=== PATIENT | female | born 1975 | race Caucasian/White ===

== ENCOUNTER 2019-03-21 08:08 | Inpatient (IN) | payer MEDICAID ==
[2019-03-13 11:32] VITALS: BMI 35.5
--- NOTE | 2019-03-19 09:20 | RADRPT ---
Vent Rate: 77 bpm RR Interval: 780 msec LA Interval: 147 msec QRS Duration: 89 msec QT Interval: 394 msec QTC Interval: 446 msec P-R-T [place]: 56 - 5 - 41 degrees Sinus rhythm...normal P axis, V-rate 50- 99 Electronically Signed By: Kd Molina
[2019-03-21] VITALS (24 sets, daily range): BP systolic 103–182; BP diastolic 53–98; PULSE 72–95; RESP 11–20; Ht 175.3 cm; Wt 109.0 kg
[~2019-03-21] VITALS: Ht 175.3 cm; Wt 109.0 kg
[~2019-03-21 08:08] MED LIST: ALBU8.5H8 INH; ATOR40TA68 PO; CEFA500C PO; CEFAZOLIN 2 GM/50 ML (PMX) 50 ML IVPB SCH; DEXTROSE 5%-0.45% NACL 1,000 ML IV ONE; GENTAMICIN 160 MG in DEXTROSE 5% 100 ML IVPB SCH; LISI10TA2 PO; METF-849 ORAL
--- NOTE | 2019-03-21 11:39 | PREAC ---
Date/Time of Note Date/Time of Note DATE: 03/21/19 TIME: 11:37 Anesthesia Eval and Record Evaluation Time Pre-Procedure Interview DATE: 03/21/19 TIME: 11:37 Age 43 Sex female NPO: 8 hrs Preoperative diagnosis left breast cancer Planned procedure left modified radical mastectomy and right prophylactic mastectomy using tissue die filer and acellular dermal matrix Past Medical History Past Medical History: Includes Cardio: HTN, Dyslipidemia Endo: Diabetes Pulm: Asthma (mild intermittent ) GI: Obesity Surgery & Anesthesia Issues No known issue Meds Anticoagulation: No Beta Matthew within 24 hr: No Reason Beta Matthew not given: Pt. not on B-Matthew Reported Medications Albuterol Sulfate* (Proair HFA*) 8.5 Gm Hfa.aer.ad, 2 PUFF INH Q4H PRN for WHEEZING AND SOB, #1 INHALER 03/21/19 Cefadroxil Hydrate* (Cefadroxil*) 500 Mg Capsule, 500 MG PO Q12, CAP 03/21/19 Atorvastatin* (Atorvastatin*) 40 Mg Tablet, 40 MG PO QHS, #30 TAB 03/21/19 Lisinopril* (Lisinopril*) 10 Mg Tablet, 10 MG PO DAILY, #30 TAB 03/21/19 Metformin* (Glucophage*) 500 Mg Tab, 2 TAB ORAL BID 03/21/19 Current Medications Dextrose/Sodium Chloride 1,000 ml @ 20 mls/hr Q24H ONCE IV ; Start 03/21/19 at 06:00; Stop 03/22/19 at 05:59 Cefazolin Sodium/ Dextrose 50 ml @ 100 mls/hr PREOP IVPB ; Start 03/21/19 at 06:00; Stop 03/21/19 at 16:00 Gentamicin Sulfate 160 mg/ Dextrose 104 ml @ 103.75 mls/ hr PREOP IVPB ; Start 03/21/19 at 06:00; Stop 03/21/19 at 19:00 Meds reviewed: Yes Allergies Coded Allergies: ibuprofen (Verified Allergy, Unknown, "UNABLE TP BREATHE", 03/20/19) Allergies Reviewed: Yes Labs/Studies Labs Reviewed: Reviewed by anesthesiologist test: Negative Studies: ECG, CXR Pre-procedure Exam Last vitals Vital Signs Date Temp Pulse Resp B/P (MAP) Pulse Ox O2 O2 Flow FiO2 Time Delivery Rate 03/21/19 97.8 82 16 182/95 98 08:30 (124) Airway: Adequate mouth opening, Adequate thyromental dist Mallampati: Mallampati II Teeth: Normal Lung: Normal Heart: Normal ASA Physical Status ASA physical status: 2 Emergency: None Planned Anesthetic General/MAC: ETT (vs. ), LMA Planned Pain Management Parenteral pain med, Local by surgeon Pre-operative Attestations Prior to commencing anesthesia and surgery, the patient was re-evaluated, there was verification of: *The patient's identity *The results of appropriate recent lab work and preoperative vital signs *The above evaluation not changing prior to induction *Anesthetic plan, risk benefits, alternative and complications discussed with patient/family; questions answered; patient/family understands, accepts and wishes to proceed. ANALI WILBURN MD Mar 21, 2019 11:39
[2019-03-21] MEDS ORDERED: MUPIROCIN 2% 15 GM CR ONE (12:27)
[2019-03-21] MEDS ORDERED: BUPIVACAINE 0.25% (MPF) 30 ML INJ ONE (12:27)
[2019-03-21] MEDS ORDERED: LIDOCAINE 1%/EPI 30 ML INJ ONE (12:27)
[2019-03-21] MEDS ORDERED: POLYMYXIN/BACITRACIN 1L IRRIG ONE (12:28)
[2019-03-21] MEDS ORDERED: GENTAMICIN 80 MG INJ ONE ×2 (12:28→15:16)
[2019-03-21] MEDS ORDERED: LIDOCAINE 2% (SDV) 5 ML INJ ONE ×2 (13:22→13:36)
[2019-03-21] MEDS ORDERED: MIDAZOLAM 1 MG/ML 2 ML INJ ONE (13:22)
[2019-03-21] MEDS ORDERED: PROPOFOL 20 ML ONE ×2 (13:36→13:39)
[2019-03-21] MEDS ORDERED: CEFAZOLIN 1 GM INJ ONE (13:36)
[2019-03-21] MEDS ORDERED: ONDANSETRON 4 MG INJ ONE (13:36)
[2019-03-21] MEDS ORDERED: DEXAMETHASONE 4 MG/ML 5 ML INJ ONE (13:36)
[2019-03-21] MEDS ORDERED: FAMOTIDINE 20 MG INJ ONE (13:44)
[2019-03-21] MEDS ORDERED: HYDROmorphONE 2 MG/ML SYG ONE (14:29)
--- NOTE | 2019-03-21 15:23 | SIPON ---
Date/Time of Note Date/Time of Note DATE: 03/21/19 TIME: 15:21 Operative Report Preoperative Diagnosis Invasive cancer left breast positive BRCA2 mutation need for left modified radical mastectomy and right mastectomy Postoperative Diagnosis Same Operation/Procedure Performed Left modified radical mastectomy and right mastectomy Surgeon see signature line senior administrative assistant Dr Thomas Anesthesia: general Estimated blood loss: 150 - 200 ml's Transfusion Required none Specimen Left breast and axillary contents and right breast Grafts/Implants none Complications none MEL CARREON MD Mar 21, 2019 15:23
[2019-03-21] MEDS ORDERED: FENTAnyl 50 MCG/ML VIAL IV PRN (15:30)
[2019-03-21] MEDS ORDERED: ACETAMINOPHEN 1000MG/100ML IV 100 ML IVPB ONE (15:30)
[2019-03-21] MEDS ORDERED: HYDROmorphONE 1 MG/5 ML IV SYRINGE IV PRN ×3 (15:30)
[2019-03-21] MEDS ORDERED: MEPERIDINE 25 MG INJ IV PRN (15:30)
[2019-03-21] MEDS ORDERED: DIPHENHYDRAMINE 50 MG INJ IV PRN (15:30)
[2019-03-21] MEDS ORDERED: ACETAMINOPHEN 1000MG/100ML IV 100 ML IVPB PRN (15:30)
[2019-03-21] MEDS ORDERED: ONDANSETRON 4 MG INJ IV PRN ×2 (15:30)
[2019-03-21] MEDS ORDERED: hydrALAzine 20 MG INJ IV PRN (15:30)
[2019-03-21] MEDS ORDERED: LABETALOL HCL 20MG INJ IV PRN (15:30)
[2019-03-21] MEDS ORDERED: LABETALOL HCL 20MG INJ ONE (16:18)
[2019-03-21] MEDS ORDERED: FENTAnyl 50 MCG/ML VIAL ONE (17:32)
--- NOTE | 2019-03-21 17:58 | PAC ---
Date/Time of Note Date/Time of Note DATE: 03/21/19 TIME: 17:58 Post-Anesthesia Notes Post-Anesthesia Note Last documented vital signs Vital Signs Date Temp Pulse Resp B/P (MAP) Pulse Ox O2 O2 Flow FiO2 Time Delivery Rate 03/21/19 98.0 17:56 03/21/19 82 16 182/95 98 08:30 (124) Activity: WNL Respiratory function: WNL Cardiovascular function: WNL Mental status: Baseline Pain reasonably controlled: Yes Hydration appropriate: Yes Nausea/Vomiting absent: Yes Comments BP: 110/58 HR: 71 RR: 15 T: 98 SaO2: 98% ANALI WILBURN MD Mar 21, 2019 17:58
--- NOTE | 2019-03-21 18:17 | OPPN ---
Date/Time of Note Date/Time of Note DATE: 03/21/19 TIME: 18:13 Operative Report Preoperative Diagnosis Immediately Post Bilateral Mastectomy Postoperative Diagnosis Same Operation/Procedure Performed Bilateral Immediate First Stage Breast Reconstruction using Subpectoral Tissue Line Up Examiner and Acellular Dermal Matrix Surgeon Ayesha Juárez M.D. quality assistant None Anesthesia: general (L.M.AVera, Mady Ken M.D., + 100 ml. of local anesthetic (0.125% Marcain, 0.5% Lidocain, and 1/200,000 Epinephrine Solution)) Estimated blood loss: 0 - 10 ml's Transfusion Required none Specimen None Grafts/Implants Bilateral A.D.M. Bilateral Tissue Expanders Complications none AYESHA JUÁREZ MD Mar 21, 2019 18:17
[2019-03-21] MEDS ORDERED: GLUCOSE GEL 15 GRAM TUBE PO PRN ×2 (18:30)
[2019-03-21] MEDS ORDERED: GLUCOSE GEL 15 GRAM TUBE BUCCAL PRN (18:30)
[2019-03-21] MEDS ORDERED: INSULIN ASPART [NOVOLOG] 3 ML PEN SC ONE (18:30)
[2019-03-21] MEDS ORDERED: GLUCAGON 1 MG INJ IM PRN (18:30)
[2019-03-21] MEDS ORDERED: DEXTROSE 50% 50 ML SYRINGE IV PRN ×2 (18:30)
[2019-03-21] MEDS ORDERED: CEFAZOLIN 1 GM/50 ML (PMX) 50 ML IVPB SCH ×2 (18:30→20:30)
[2019-03-21] MEDS: FENTAnyl 50 MCG/ML VIAL IV PRN ×2 (19:21→19:32)
[2019-03-21] MEDS: morphine 2 MG INJ IV PRN ×2 (20:10→21:07)
--- NOTE | 2019-03-21 20:19 | OPR ---
DATE OF OPERATION: 03/21/2019 PREOPERATIVE DIAGNOSIS: Invasive cancer, left breast, and positive BRCA2 mutation, need for left mod ified radical mastectomy and right mastectomy. INDICATIONS FOR PROCEDURE: The patient is a 43-year-old female who had previously been diagnosed wit h an invasive cancer of her left breast. Genetic testing revealed that she was BRCA positive. She w as counseled as to the need for both left modified radical mastectomy as well as a right mastectomy. She consented and was scheduled for surgery. DESCRIPTION OF PROCEDURE: The patient was brought to the operating theater and placed under general endotracheal tube anesthesia. The breast and axillary regions were prepped and draped in the usual s terile fashion bilaterally. Attention was first directed to the right side. An elliptical incision was made around the nipple-areolar complex including a small portion of the overlying breast skin. T he incision was then carried out with 15 blade scalpel. Subcutaneous tissue was dissected with caute ry. Skin edges were elevated with Allis [place] clamps, and skin flaps were created using cautery, fir st superiorly to the clavicle, then medially to the sternal border, inferiorly to the inframammary fo ld, and laterally until the latissimus dorsi muscle was identified throughout its course. Mastectomy then took place from medial to lateral. The border of the pectoralis major muscle and the pectorali s minor muscle were identified. Clavipectoral fascia was incised and the residual axillary tail of Mary da silva was then also resected with cautery. Specimen was removed, oriented and sent for permanent pat hologic analysis. The wound was irrigated. Minimal bleeding was controlled with cautery, and the wo und was then packed with warm saline-soaked lap pads. Attention was then directed to the left side. Again, elliptical incision was demarcated around the n ipple-areolar complex including a small portion of the overlying breast skin. The incision was jalen ed out with 15 blade scalpel, and the subcutaneous tissue was dissected with cautery. The skin edges were then elevated with Allis [place] clamps, and skin flaps were created using cautery, first superio rly to the clavicle, then medially to the sternal border, inferiorly to the inframammary fold, and la terally until the latissimus dorsi muscle was identified throughout its course. Mastectomy then took place from medial to lateral. The border of the pectoralis major muscle and the pectoralis minor mu scle was identified. The clavipectoral fascia was incised. A level 1, then partial level 2 axillary dissection was then performed using the LigaSure device. The final connective tissue attachments to the latissimus dorsi muscle were then transected with cautery. Specimen was removed, oriented, and sent for permanent pathologic analysis. The wound was irrigated. Minimal bleeding was controlled wi th cautery, and the wound was then packed with warm saline-soaked lap pads. At this time, Dr. Ramiro Juárez, plastic surgeon, came in and took over control of the operation to proceed with immediate sandra nstruction. He will dictate his portion of the operation separately. The total blood loss for Dr. Gary owen' portion of the operation was approximately 200 mL. There were no complications, and when Dr. Gary owen left the room, the patient was in stable condition. Dictated By: MEL CHERRY/TAM Conf#: [id number] DID#: [id number]
[2019-03-21] MEDS: D5W-0.45 NACL + KCL 20 MEQ 1,000 ML IV SCH ×2 (20:43→23:23)
[2019-03-21] MEDS ORDERED: ALBUTEROL HFA 8 GM INHALER INH PRN (21:00)
[2019-03-21] MEDS ORDERED: morphine 1 MG/ML 30 ML (PCA) IV SCH (22:30)
[2019-03-21] MEDS: morphine 1 MG/ML 30 ML (PCA) IV SCH (23:30)
[2019-03-21] MEDS: INSULIN ASPART [NOVOLOG] 3 ML PEN SC SCH (23:39)
[2019-03-22] VITALS (8 sets, daily range): BP systolic 119–164; BP diastolic 59–93; PULSE 66–89; RESP 16–20
[2019-03-22] MEDS: morphine 1 MG/ML 30 ML (PCA) IV SCH ×3 (05:31→20:08)
--- NOTE | 2019-03-22 06:17 | OPR ---
DATE OF OPERATION: 03/21/2019 PREOPERATIVE DIAGNOSIS: Immediately post bilateral mastectomy. POSTOPERATIVE DIAGNOSIS: Immediately post bilateral mastectomy. OPERATION PERFORMED: Bilateral immediate first stage breast reconstruction using subpectoral tissue production helper and acellular dermal matrix implants. SURGEON: Ayesha Juárez MD. PIPELINE OPERATOR: None. ANESTHESIA: General laryngeal mask airway. ANESTHESIOLOGIST: Mady Ken MD. LOCAL ANESTHETIC INFILTRATION: Local anesthetic infiltration 100 mL of 0.125% Marcaine, 0.5% lidocai ne, and 1:200,000 epinephrine solution. ESTIMATED BLOOD LOSS: 10 mL. SPECIMEN: None. DRESSING: Bactroban cream, dry sterile dressing, Tegaderm, ABD pad and mammary support. SPECIFICATIONS OF TISSUE EXPANDERS USED: 1. Left breast tissue production helper, reference #[id number], serial #[id number]. Total amount nominal vol ume 535 mL. Total amount of normal saline 450 mL. 2. Right breast tissue production helper, [place] [employer] high profile breast tissue production helper textured nominal volume 535 mL, reference #[id number], serial #[id number]. Total amount of normal saline in the rig ht tissue production helper 450 mL. SPECIFICATIONS OF ACELLULAR DERMAL MATRIX USED: 1. For right breast, intake SurgiMend PRS reference #[id number], 10 x 15 cm. Expiration date 024. Lot #[id number]. 2. Specification of left acellular dermal matrix: Intake SurgiMend PRS reference #[id number], 10 x 15 cm, expiration date 10/20/2023, lot #[id number]. OPERATIVE PROCEDURE: With the patient in sitting position in the holding area, markings were made fo r the planned procedure. In the operating room with the patient in supine position, following adequa te monitoring and induction of adequate level of general anesthesia using laryngeal mask airway by Dr Vera Ken, anesthesiologist, the chest was prepped and draped in the usual sterile fashion. Operation w as first begun by Dr. Sánchez, who performed a bilateral mastectomy. After completion of mastectomy, I took over the procedure and performed a bilateral first stage immediate breast reconstruction identi stuart for both breasts as follows. First, inferior insertion of pectoralis major muscle was detached from the chest wall at the level of the inframammary fold. This detachment continued cephalad until adequate pocket for the tissue production helper was noted. At this time, the acellular dermal matrix was fi xed to the anterior chest wall at the level of insertion of the muscle. This was done using interrup janine and continuous stitches of 2-0 Monocryl. The tissue production helper was primed with 100 mL of injectabl e normal saline using aseptic fluid transfer set as a closed system delivery provided by [employer]. Adequate amount of irrigation was performed using triple antibiotic solution and the same so lution was used to immerse the expanders and ADMs for over half an hour prior to their use. All the air was removed from the tissue production helper and the tissue production helper was placed inside the pocket. The A DM was placed over the tissue production helper and the pectoralis major muscle was draped over the ADM and th e inferior border of the muscle was sewn to the ADM using interrupted and continuous stitches of 2-0 Monocryl. A 10 mm flat Trung-Rapp drain was placed via a stab entry over the anterior axillary li ne inferior to the inframammary fold and brought in and entered the pocket from its apex close to the axilla. This was fixed to the skin using a single suture of 2-0 Monocryl. Following closure of the muscle, volume of the tissue production helper was gradually increased to 450 mL. That provided a tension-fr ee closure of the skin with adequate initial expansion. Skin closure was followed using interrupted and continuous stitches of 2-0 Monocryl. Repairs were found to be satisfactory upon their completion s. All counts were checked and reported to be correct prior to closure. A surgical pause was perfor med at the beginning of the procedure before starting the procedure. Dressing was applied as mention ed above. Patient tolerated the procedure. The dressing included Bactroban cream, dry sterile dress ing, Adaptic and Tegaderm followed by ABD pad and mammary support. The patient tolerated the procedu re very well and left the operating room to the recovery room awake, stable and in comfortable, satis factory and extubated condition. Dictated By: AYESHA KUO/TAM Conf#: [id number] DID#: [id number] CC: MEL SÁNCHEZ MD;*EndCC*
[2019-03-22] MEDS: D5W-0.45 NACL + KCL 20 MEQ 1,000 ML IV SCH (07:55)
[2019-03-22] MEDS: INSULIN ASPART [NOVOLOG] 3 ML PEN SC SCH ×4 (08:56→21:04)
--- NOTE | 2019-03-22 14:59 | HP ---
Date/Time of Note Date/Time of Note DATE: 03/22/19 TIME: 14:56 Assessment/Plan VTE Prophylaxis Risk score (from Ns)>0 risk: 11 SCD applied (from Ns): Yes Pharmacological prophylaxis: LMWH Lines/Catheters IV Catheter Type (from Nrsg): Peripheral IV Urinary Cath still in place: No Assessment/Plan Hospital Course 1) breast cancer - s/p mastectomy 2) hypertension - continue home meds 3) diabetes - continue home meds - sliding scale insulin Results 24hrs Laboratory Tests Test 03/21/19 18:00 03/21/19 21:41 03/21/19 23:35 03/22/19 02:13 Bedside Glucose 290 H 254 H 236 H 249 H Test 03/22/19 08:54 03/22/19 13:26 Bedside Glucose 268 H 197 HPI/ROS Admit Date/Time Admit Date/Time Mar 21, 2019 at 08:08 Hx of Present Illness Patient with hypertension, hypercholesterolemia, diabetes comes in for mastectomy as treatment for breast cancer. Patient tolerated the procedure and is now receiving postoperative care. PMH/Family/Social Past Medical History Medical History: diabetes, high cholesterol, hypertension Medications Current Medications Ondansetron HCl (Zofran Inj) 4 mg Q6H PRN IV NAUSEA AND/OR VOMITING; Start 03/21/19 at 15:30 Acetaminophen 100 ml @ 400 mls/hr Q6H PRN IVPB PAIN Last administered on 03/21/19at 22:52; Admin Dose 400 MLS/HR; Start 03/21/19 at 15:30; Stop 03/22/19 at 15:29 Miscellaneous Information 1 ea NOTE XX ; Start 03/21/19 at 18:30 Glucose (Glutose) 15 gm Q15M PRN PO DECREASED GLUCOSE; Start 03/21/19 at 18:30 Glucose (Glutose) 22.5 gm Q15M PRN PO DECREASED GLUCOSE; Start 03/21/19 at 18:30 Dextrose (D50w Syringe) 25 ml Q15M PRN IV DECREASED GLUCOSE; Start 03/21/19 at 18:30 Dextrose (D50w Syringe) 50 ml Q15M PRN IV DECREASED GLUCOSE; Start 03/21/19 at 18:30 Glucagon (Glucagen) 1 mg Q15M PRN IM DECREASED GLUCOSE; Start 03/21/19 at 18:30 Glucose (Glutose) 15 gm Q15M PRN BUCCAL DECREASED GLUCOSE; Start 03/21/19 at 18:30 Clonidine (Catapres) 0.1 mg Q6H PRN PO HIGH BP; Start 03/21/19 at 20:30 Albuterol (Ventolin Hfa) 2 puff Q6H RESP THERAPY PRN INH SHORTNESS OF BREATH; Start 03/21/19 at 21:00 Insulin Aspart (Novolog Insulin Pen) NOVOLOG *MODERATE* ALGORITHM WITH MEALS BEDTIME SC Last administered on 03/22/19at 13:33; Admin Dose 4 UNIT; Start 03/22/19 at 07:50 Morphine Sulfate (morphine) 2 MG/HR CONTINUOUS RATE 2... Q4PCA IV Last administered on 03/22/19at 13:31; Admin Dose 30 MG; Start 03/21/19 at 23:30 Sodium Chloride 1,000 ml @ 60 mls/hr [id number] IV ; Start 03/22/19 at 14:30 Coded Allergies: ibuprofen (Verified Allergy, Unknown, "UNABLE TP BREATHE", 03/20/19) Social History Smoking Status: Never smoker Exam/Review of Systems Vital Signs Vitals Vital Signs Date Temp Pulse Resp B/P (MAP) Pulse Ox O2 O2 Flow FiO2 Time Delivery Rate 03/22/19 98.8 89 16 130/62 98 14:23 (84) 03/22/19 Nasal 2.0 06:00 Cannula Intake and Output 03/21/19 03/21/19 03/22/19 1515:00 23:00 07:00 IntakeIntake Total 1990 ml 340 ml OutputOutput Total 1835 ml 45 ml BalanceBalance 155 ml 295 ml Exam Constitutional: well developed Head: normocephalic, atraumatic Neck: supple Respiratory: diminished breath sounds Cardiovascular: regular rate and rhythm Gastrointestinal: soft, non-tender MICHELLE KWAN Mar 22, 2019 14:58
[2019-03-22] MEDS: SOD CHLORIDE 0.45% 1,000 ML IV SCH (15:30)
[2019-03-22] MEDS: metFORMIN 500 MG TAB PO SCH (18:17)
[2019-03-22] MEDS: ATORVASTATIN 40 MG TAB PO SCH (20:11)
[2019-03-23] VITALS (7 sets, daily range): BP systolic 114–165; BP diastolic 61–85; PULSE 71–91; RESP 18–20
--- NOTE | 2019-03-23 03:36 | PN ---
DATE: 03/22/2019 Postop day #1. Status post left breast modified radical mastectomy and right breast complete mastectomy for cancer of the left breast and BRCA2 positive gene. SUBJECTIVE: No specific complaint. The pain is better under control now with BENCH MOLDER APPRENTICE that was started last night. The patient has tolerated diet. OBJECTIVE: GENERAL: Alert, awake, oriented x3. VITAL SIGNS: Temperature 98.9, heart rate fluctuating between 66 and 89, respiration 16, blood pressure 164/87, saturation 93% and 98% on 2 liters nasal cannula. EXTREMITIES: Can move both upper extremities. LABORATORY DATA: There is no lab done for today. INPUT AND OUTPUT: Two Trung-Rapp drains and they have draining serosanguineous fluid from the time of operation yesterday until 7:00 today morning. They have drained a total of 60 mL, one was 25 and the other was 35 mL. The patient has urinated okay. IMPRESSION: Postoperative day #1. The patient is stable. required BENCH MOLDER APPRENTICE to control her pain. The patient is using BENCH MOLDER APPRENTICE today. PLAN: The patient, so far, is stable, but we want to keep her 1 or 2 more days for control of diabetes and for control of the pain before being discharged. Dictated By: KIMBERLEY GARCIA MD PS/NTS Conf#: [id number] DID#: [id number] CC: MEL CARREON MD;*EndCC* MTDD
[2019-03-23] MEDS: morphine 1 MG/ML 30 ML (PCA) IV SCH ×4 (03:39→19:49)
--- NOTE | 2019-03-23 06:27 | OPR ---
DATE OF OPERATION: ADDENDUM Missing from the report is the postoperative diagnosis and the procedure, so the beginning of the rep ort should read. PREOPERATIVE DIAGNOSES: 1. Invasive cancer, left breast. 2. Positive BRCA2 mutation. 3. Need for left radical mastectomy and right mastectomy. POSTOPERATIVE DIAGNOSES: 1. Invasive cancer, left breast. 2. Positive BRCA2 mutation. 3. Need for left radical mastectomy and right mastectomy. OPERATION PERFORMED: Left modified radical mastectomy and right mastectomy with immediate reconstru ction. ANESTHESIA: General. ANESTHESIOLOGIST: Dr. Ken. SURGEON: Stefan Sánchez MD PLASTIC SURGEON: Dr. Ramiro Juárez TERRESTRIAL ECOLOGIST: Porter Thomas MD. The remainder of the report is correct as previously dictated. Dictated By: STEFAN SÁNCHEZ MD TL/TAM Conf#: [id number] DID#: [id number]
[2019-03-23] MEDS: LISINOPRIL 10 MG TAB PO SCH (08:39)
[2019-03-23] MEDS: SOD CHLORIDE 0.45% 1,000 ML IV SCH (08:39)
[2019-03-23] MEDS: metFORMIN 500 MG TAB PO SCH ×2 (08:45→17:54)
[2019-03-23] MEDS: INSULIN ASPART [NOVOLOG] 3 ML PEN SC SCH ×4 (08:50→21:19)
[2019-03-23] MEDS ORDERED: HYDROCODONE/APAP (5/325) TAB PO PRN (10:30)
[2019-03-23] MEDS: HYDROCODONE/APAP (5/325) TAB PO PRN ×3 (10:52→20:52)
--- NOTE | 2019-03-23 11:15 | PN ---
DATE: 03/22/2019 Postop day #2 status post left breast modified radical mastectomy and right breast mastectomy for the cancer of left breast and BRCA2 mutation. SUBJECTIVE: Patient states she still has to use PHYSICIAN ASST for control of the pain. No nausea, no vomiting, no bowel movement, but is passing gas. OBJECTIVE: GENERAL: Awake, alert, oriented, appears comfortable. VITAL SIGNS: Temperature maximum today 98.6, heart rate 82, respirations 20, blood pressure 105/85. LABS: Electrolytes normal. Glucose 204. Calcium 8. Hematology: WBC 11.9, slightly elevated. Differential is 69% neutrophils, normal. Hemoglobin 11.2, hematocrit 35.6. Clinical physical exam, respiratory rate is okay. No respiratory distress. CARDIOVASCULAR: Regular. LUNGS: Clear. Dressing which was applied by Dr. Juárez, plastic surgeon, in the operating room, around the chest is intact. The patient states that yesterday was tight, today is not tight. She is using the incentive spirometry device and tidal volume on deep inspiration is about 1400. ABDOMEN: Soft. EXTREMITIES: Legs no calf tenderness. ASSESSMENT: Trung-Rapp drains have serosanguineous fluid in them. In the past 24-hours, they have drained a total of 205. ASSESSMENT AND PLAN: Postop day #2 status post bilateral mastectomy for cancer. Patient is having too much pain so much so that it requires to start her on PHYSICIAN ASST. I am going to add Toradol to the medication regimen. I am going to start on [place] 1 tablet q.4h. p.r.n. I am going to discontinue the continuous dose of morphine which was 2 mg/hour and I am going to keep 2 mg IV morphine PHYSICIAN ASST every 30 minutes. Encourage the patient to get out of bed and walk around hoping that by tomorrow the patient is stable. Dictated By: KIMBERLEY GARCIA MD PS/NTS Conf#: [id number] DID#: [id number] CC: MEL CARREON MD;*EndCC* MTDD
[2019-03-23] MEDS: PATIENT'S OWN MEDICATION PO SCH ×2 (13:37→20:52)
--- NOTE | 2019-03-23 14:46 | PN ---
Date/Time of Note Date/Time of Note DATE: 03/23/19 TIME: 14:46 Assessment/Plan VTE Prophylaxis Risk score (from Ns)>0 risk: 5 SCD applied (from Ns): Yes Pharmacological prophylaxis: LMWH Lines/Catheters IV Catheter Type (from Nrs): Peripheral IV Urinary Cath still in place: No Assessment/Plan Hospital Course 1) breast cancer - s/p mastectomy 2) hypertension - continue home meds 3) diabetes - continue home meds - sliding scale insulin Result Diagram: 03/23/19 0438 03/23/19 0438 Results 24hrs Laboratory Tests Test 03/22/19 17:50 03/22/19 20:59 03/23/19 01:37 03/23/19 04:38 Bedside Glucose 214 218 193 White Blood Count 11.9 H Red Blood Count 3.94 L Hemoglobin 11.2 L Hematocrit 35.6 L Mean Corpuscular Volume 90.4 Mean Corpuscular 28.4 L Hemoglobin Mean Corpuscular 31.5 L Hemoglobin Concent Red Cell Distribution 13.4 Width Platelet Count 256 Mean Platelet Volume 9.6 Immature Granulocytes % 0.600 H Neutrophils % 68.9 Lymphocytes % 23.0 Monocytes % 6.6 Eosinophils % 0.5 Basophils % 0.4 Nucleated Red Blood 0.0 Cells % Immature Granulocytes # 0.070 H Neutrophils # 8.2 H Lymphocytes # 2.7 Monocytes # 0.8 Eosinophils # 0.1 Basophils # 0.1 Nucleated Red Blood 0.0 Cells # Sodium Level 138 Potassium Level 3.7 Chloride Level 102 Carbon Dioxide Level 28 Anion Gap 8 Blood Urea Nitrogen 7 Creatinine 0.57 Est Glomerular Filtrat > 60 Rate mL/min Glucose Level 204 Calcium Level 8.0 L Test 03/23/19 08:44 03/23/19 12:57 Bedside Glucose 173 170 Subjective 24 Hr Interval Summary Free Text/Dictation Patient still having a fair amount of pain Exam/Review of Systems Exam Vitals Vital Signs Date Temp Pulse Resp B/P (MAP) Pulse Ox O2 O2 Flow FiO2 Time Delivery Rate 03/23/19 98.3 83 18 119/69 96 13:32 (86) 03/23/19 Nasal 2.0 09:30 Cannula Intake and Output 03/22/19 03/22/19 03/23/19 1515:00 23:00 07:00 IntakeIntake Total 1000 ml 1230 ml 1315 ml OutputOutput Total 30 ml 125 ml 50 ml BalanceBalance 970 ml 1105 ml 1265 ml Constitutional: well developed Head: normocephalic, atraumatic Neck: supple Respiratory: diminished breath sounds Cardiovascular: regular rate and rhythm Gastrointestinal: soft, non-tender Extremities: normal pulses Results Results 24hrs Laboratory Tests Test 03/22/19 17:50 03/22/19 20:59 03/23/19 01:37 03/23/19 04:38 Bedside Glucose 214 218 193 White Blood Count 11.9 H Red Blood Count 3.94 L Hemoglobin 11.2 L Hematocrit 35.6 L Mean Corpuscular Volume 90.4 Mean Corpuscular 28.4 L Hemoglobin Mean Corpuscular 31.5 L Hemoglobin Concent Red Cell Distribution 13.4 Width Platelet Count 256 Mean Platelet Volume 9.6 Immature Granulocytes % 0.600 H Neutrophils % 68.9 Lymphocytes % 23.0 Monocytes % 6.6 Eosinophils % 0.5 Basophils % 0.4 Nucleated Red Blood 0.0 Cells % Immature Granulocytes # 0.070 H Neutrophils # 8.2 H Lymphocytes # 2.7 Monocytes # 0.8 Eosinophils # 0.1 Basophils # 0.1 Nucleated Red Blood 0.0 Cells # Sodium Level 138 Potassium Level 3.7 Chloride Level 102 Carbon Dioxide Level 28 Anion Gap 8 Blood Urea Nitrogen 7 Creatinine 0.57 Est Glomerular Filtrat > 60 Rate mL/min Glucose Level 204 Calcium Level 8.0 L Test 03/23/19 08:44 03/23/19 12:57 Bedside Glucose 173 170 Medications Medication Current Medications Ondansetron HCl (Zofran Inj) 4 mg Q6H PRN IV NAUSEA AND/OR VOMITING; Start 03/21/19 at 15:30 Miscellaneous Information 1 ea NOTE XX ; Start 03/21/19 at 18:30 Glucose (Glutose) 15 gm Q15M PRN PO DECREASED GLUCOSE; Start 03/21/19 at 18:30 Glucose (Glutose) 22.5 gm Q15M PRN PO DECREASED GLUCOSE; Start 03/21/19 at 18:30 Dextrose (D50w Syringe) 25 ml Q15M PRN IV DECREASED GLUCOSE; Start 03/21/19 at 18:30 Dextrose (D50w Syringe) 50 ml Q15M PRN IV DECREASED GLUCOSE; Start 03/21/19 at 18:30 Glucagon (Glucagen) 1 mg Q15M PRN IM DECREASED GLUCOSE; Start 03/21/19 at 18:30 Glucose (Glutose) 15 gm Q15M PRN BUCCAL DECREASED GLUCOSE; Start 03/21/19 at 18:30 Clonidine (Catapres) 0.1 mg Q6H PRN PO HIGH BP; Start 03/21/19 at 20:30 Albuterol (Ventolin Hfa) 2 puff Q6H RESP THERAPY PRN INH SHORTNESS OF BREATH; Start 03/21/19 at 21:00 Insulin Aspart (Novolog Insulin Pen) NOVOLOG *MODERATE* ALGORITHM WITH MEALS BEDTIME SC Last administered on 03/23/19 12:59; Admin Dose 2 UNIT; Start 03/22/19 at 07:50 Morphine Sulfate (morphine) 0 MG/HR CONTINUOUS RATE 2... Q4PCA IV Last administered on 03/23/19 10:52; Admin Dose 25 MG; Start 03/21/19 at 23:30 Sodium Chloride 1,000 ml @ 60 mls/hr [id number] IV Last administered on 03/23/19 08:39; Admin Dose 60 MLS/HR; Start 03/22/19 at 14:30 Atorvastatin Calcium (Lipitor) 40 mg QHS PO Last administered on 03/22/19at 20:11; Admin Dose 40 MG; Start 03/22/19 at 21:00 Lisinopril (Zestril) 10 mg DAILY PO Last administered on 03/23/19 08:39; Admin Dose 10 MG; Start 03/23/19 at 09:00 Metformin HCl (Glucophage) 500 mg BID WITH MEALS PO Last administered on 03/23/19at 08:45; Admin Dose 500 MG; Start 03/22/19 at 17:55 Patient Own Medication 1 ea Q12 PO Last administered on 03/23/19 13:37; Admin Dose 1 EA; Start 03/23/19 at 12:00 Acetaminophen/ Hydrocodone Bitart ([place] (5/325)) 1 tab Q4H PRN PO MODERATE PAIN LEVEL 4-6; Start 03/23/19 at 10:30 Acetaminophen/ Hydrocodone Bitart ([place] (5/325)) 2 tab Q4H PRN PO SEVERE PAIN LEVEL 7-10 Last administered on 03/23/19at 10:52; Admin Dose 2 TAB; Start 03/23/19 at 10:30 Magnesium Hydroxide (Milk Of Mag) 30 ml QHS PO ; Start 03/23/19 at 21:00 MICHELLE KWAN Mar 23, 2019 14:46
[2019-03-23] MEDS: ATORVASTATIN 40 MG TAB PO SCH (20:52)
[2019-03-23] MEDS: MAGNESIUM HYDROXIDE 30ML CUP PO SCH (20:54)
[2019-03-24 00:21] VITALS: BP 157/88; PULSE 92; RESP 20
[2019-03-24] MEDS: HYDROCODONE/APAP (5/325) TAB PO PRN ×5 (00:35→21:38)
[2019-03-24 00:45] VITALS: BP 133/60; PULSE 83
[2019-03-24] MEDS: SOD CHLORIDE 0.45% 1,000 ML IV SCH ×2 (02:22→16:30)
[2019-03-24 04:00] VITALS: BP 129/63; PULSE 79; RESP 17
[2019-03-24] MEDS: morphine 1 MG/ML 30 ML (PCA) IV SCH ×2 (07:27→21:31)
[2019-03-24 08:25] VITALS: BP 149/83; PULSE 94; RESP 18
[2019-03-24] MEDS: metFORMIN 500 MG TAB PO SCH ×2 (08:43→17:59)
[2019-03-24] MEDS: LISINOPRIL 10 MG TAB PO SCH (08:44)
[2019-03-24] MEDS: PATIENT'S OWN MEDICATION PO SCH ×2 (08:45→21:32)
[2019-03-24] MEDS: INSULIN ASPART [NOVOLOG] 3 ML PEN SC SCH ×4 (08:45→21:42)
--- NOTE | 2019-03-24 12:09 | PN ---
Date/Time of Note Date/Time of Note DATE: 03/24/19 TIME: 12:08 Assessment/Plan VTE Prophylaxis Risk score (from Nsg)>0 risk: 10 SCD applied (from Nsg): Yes Pharmacological prophylaxis: LMWH Lines/Catheters IV Catheter Type (from Nrsg): Peripheral IV Urinary Cath still in place: No Assessment/Plan Hospital Course 1) breast cancer - s/p mastectomy 2) hypertension - continue home meds 3) diabetes - continue home meds - sliding scale insulin Result Diagram: 03/23/19 0438 03/23/19 0438 Results 24hrs Laboratory Tests Test 03/23/19 12:57 03/23/19 17:47 03/23/19 21:03 03/24/19 02:22 Bedside Glucose 170 214 199 174 Test 03/24/19 08:30 Bedside Glucose 201 Subjective 24 Hr Interval Summary Free Text/Dictation Patient still having a fair amount of pain in area of surgery Exam/Review of Systems Exam Vitals Vital Signs Date Temp Pulse Resp B/P (MAP) Pulse Ox O2 O2 Flow FiO2 Time Delivery Rate 03/24/19 99.2 94 18 149/83 97 Room Air 08:25 (105) 03/23/19 2.0 13:30 Intake and Output 03/23/19 03/23/19 03/24/19 1515:00 23:00 07:00 IntakeIntake Total 635 ml 1840 ml 535 ml OutputOutput Total 125 ml 35 ml BalanceBalance 635 ml 1715 ml 500 ml Constitutional: well developed Head: normocephalic, atraumatic Neck: supple Respiratory: diminished breath sounds Cardiovascular: regular rate and rhythm Gastrointestinal: soft, non-tender Extremities: normal pulses Results Results 24hrs Laboratory Tests Test 03/23/19 12:57 03/23/19 17:47 03/23/19 21:03 03/24/19 02:22 Bedside Glucose 170 214 199 174 Test 03/24/19 08:30 Bedside Glucose 201 Medications Medication Current Medications Ondansetron HCl (Zofran Inj) 4 mg Q6H PRN IV NAUSEA AND/OR VOMITING; Start 03/21/19 at 15:30 Miscellaneous Information 1 ea NOTE XX ; Start 03/21/19 at 18:30 Glucose (Glutose) 15 gm Q15M PRN PO DECREASED GLUCOSE; Start 03/21/19 at 18:30 Glucose (Glutose) 22.5 gm Q15M PRN PO DECREASED GLUCOSE; Start 03/21/19 at 18:30 Dextrose (D50w Syringe) 25 ml Q15M PRN IV DECREASED GLUCOSE; Start 03/21/19 at 18:30 Dextrose (D50w Syringe) 50 ml Q15M PRN IV DECREASED GLUCOSE; Start 03/21/19 at 18:30 Glucagon (Glucagen) 1 mg Q15M PRN IM DECREASED GLUCOSE; Start 03/21/19 at 18:30 Glucose (Glutose) 15 gm Q15M PRN BUCCAL DECREASED GLUCOSE; Start 03/21/19 at 18:30 Clonidine (Catapres) 0.1 mg Q6H PRN PO HIGH BP; Start 03/21/19 at 20:30 Albuterol (Ventolin Hfa) 2 puff Q6H RESP THERAPY PRN INH SHORTNESS OF BREATH; Start 03/21/19 at 21:00 Insulin Aspart (Novolog Insulin Pen) NOVOLOG *MODERATE* ALGORITHM WITH MEALS BE DTIME SC Last administered on 03/24/19 08:45; Admin Dose 4 UNIT; Start 03/22/19 at 07:50 Morphine Sulfate (morphine) 0 MG/HR CONTINUOUS RATE 2... Q4PCA IV Last administered on 03/24/19 07:27; Admin Dose 30 MG; Start 03/21/19 at 23:30 Sodium Chloride 1,000 ml @ 60 mls/hr [id number] IV Last administered on 03/24/19 02:22; Admin Dose 60 MLS/HR; Start 03/22/19 at 14:30 Atorvastatin Calcium (Lipitor) 40 mg QHS PO Last administered on 03/23/19at 20:52; Admin Dose 40 MG; Start 03/22/19 at 21:00 Lisinopril (Zestril) 10 mg DAILY PO Last administered on 03/24/19 08:44; Admin Dose 10 MG; Start 03/23/19 at 09:00 Metformin HCl (Glucophage) 500 mg BID WITH MEALS PO Last administered on 03/24/19 08:43; Admin Dose 500 MG; Start 03/22/19 at 17:55 Patient Own Medication 1 ea Q12 PO Last administered on 03/24/19 08:45; Admin Dose 1 EA; Start 03/23/19 at 12:00 Acetaminophen/ Hydrocodone Bitart ([place] (5/325)) 1 tab Q4H PRN PO MODERATE PAIN LEVEL 4-6; Start 03/23/19 at 10:30 Acetaminophen/ Hydrocodone Bitart ([place] (5/325)) 2 tab Q4H PRN PO SEVERE PAIN LEVEL 7-10 Last administered on 03/24/19at 08:49; Admin Dose 2 TAB; Start 03/23/19 at 10:30 Magnesium Hydroxide (Milk Of Mag) 30 ml QHS PO ; Start 03/23/19 at 21:00 MICHELLE KWAN Mar 24, 2019 12:09
--- NOTE | 2019-03-24 14:50 | PN ---
DATE: 03/24/2019 Postop day #3 status post left breast modified radical mastectomy and right breast complete mastectom y and immediate postop first stage reconstruction by plastic surgeon by placing the tissue expanders. SUBJECTIVE: The patient has been complaining of too much pain since the post-operation; so much that they had to put her on PAI GOW MANAGER morphine to control the pain. Right now patient is on PAI GOW MANAGER morphine 2 mg every 30 minutes and also [place] tablets 5/325 1 to 2 tablets p.o. q.4 hours p.r.n. The patient has be en using all the medications for pain. I wanted to start the patient on Toradol, but she has history of allergic reaction to ibuprofen, so I am not sure if she is not going to respond to that, so we wi ll keep her on this pain medication and she actually states that today is worse than yesterday said i t was better. She has been out of bed a little bit. OBJECTIVE: VITAL SIGNS: Temperature maximum at 8:30 a.m. today 99.2, heart rate 94, blood pressure 149/83, resp irations 18, saturation 97% room air. LABORATORY DATA: Today, we do not have any CBC today. Yesterday was elevated 1,900. We have POC gl ucose today, but no electrolyte today. The glucose POC has been ranging between 199 to 219. So clinically, does not appear to be in acute distress. I removed the dressing partially and inspect ed the superior flap skin which is not red, it looks normal. The patient is on antihypertensives and also metformin and Lipitor. PLAN: We will continue the medication for control of blood pressure and sugar and pain. Hopefully, we may be able to discharge her tomorrow. Dictated By: KIMBERLEY GARCIA MD PS/NTS Conf#: [id number] DID#: [id number] CC: MEL CARREON MD;*EndCC*
[2019-03-24 15:24] VITALS: BP 112/70; PULSE 88; RESP 18
[2019-03-24 21:06] VITALS: BP 125/67; PULSE 85; RESP 20
[2019-03-24] MEDS: ATORVASTATIN 40 MG TAB PO SCH (21:31)
[2019-03-24] MEDS: MAGNESIUM HYDROXIDE 30ML CUP PO SCH (21:32)
[2019-03-25 02:17] VITALS: BP 148/71; PULSE 80; RESP 18
[2019-03-25] MEDS: HYDROCODONE/APAP (5/325) TAB PO PRN ×3 (05:33→23:54)
[2019-03-25 07:28] VITALS: BP 145/72; PULSE 77; RESP 15
[2019-03-25] MEDS: metFORMIN 500 MG TAB PO SCH ×2 (08:51→18:50)
[2019-03-25] MEDS: LISINOPRIL 10 MG TAB PO SCH (08:52)
[2019-03-25] MEDS: PATIENT'S OWN MEDICATION PO SCH ×2 (08:52→20:32)
[2019-03-25] MEDS: INSULIN ASPART [NOVOLOG] 3 ML PEN SC SCH ×4 (08:53→20:35)
[2019-03-25] MEDS: SOD CHLORIDE 0.45% 1,000 ML IV SCH (09:10)
--- NOTE | 2019-03-25 10:11 | PN ---
Date/Time of Note Date/Time of Note DATE: 03/25/19 TIME: 10:11 Assessment/Plan VTE Prophylaxis Risk score (from Ns)>0 risk: 9 SCD applied (from Ns): Yes Pharmacological prophylaxis: LMWH Lines/Catheters IV Catheter Type (from Nrs): Peripheral IV Urinary Cath still in place: No Assessment/Plan Hospital Course 1) breast cancer - s/p mastectomy 2) hypertension - continue home meds 3) diabetes - continue home meds - sliding scale insulin Result Diagram: 03/25/19 0429 03/23/19 0438 Results 24hrs Laboratory Tests Test 03/24/19 12:52 03/24/19 17:56 03/24/19 21:33 03/25/19 02:57 Bedside Glucose 219 213 195 170 Test 03/25/19 04:29 03/25/19 08:22 White Blood Count 8.5 # Red Blood Count 3.82 L Hemoglobin 11.0 L Hematocrit 34.4 L Mean Corpuscular Volume 90.1 Mean Corpuscular 28.8 L Hemoglobin Mean Corpuscular 32.0 Hemoglobin Concent Red Cell Distribution 13.4 Width Platelet Count 271 Mean Platelet Volume 9.6 Immature Granulocytes % 0.800 H Neutrophils % 55.4 Lymphocytes % 34.2 Monocytes % 6.4 Eosinophils % 2.5 Basophils % 0.7 Nucleated Red Blood 0.0 Cells % Immature Granulocytes # 0.070 H Neutrophils # 4.7 Lymphocytes # 2.9 Monocytes # 0.5 Eosinophils # 0.2 Basophils # 0.1 Nucleated Red Blood 0.0 Cells # Bedside Glucose 164 Subjective 24 Hr Interval Summary Free Text/Dictation Patient states that the pain from surgery is decreased, using norco for pain for the most part Exam/Review of Systems Exam Vitals Vital Signs Date Temp Pulse Resp B/P (MAP) Pulse Ox O2 O2 Flow FiO2 Time Delivery Rate 03/25/19 98.3 77 15 145/72 100 Room Air 07:28 (96) 03/23/19 2.0 13:30 Intake and Output 03/24/19 03/24/19 03/25/19 1515:00 23:00 07:00 IntakeIntake Total 300 ml 1760 ml 900 ml OutputOutput Total 35 ml 40 ml 40 ml BalanceBalance 265 ml 1720 ml 860 ml Constitutional: well developed Head: normocephalic, atraumatic Neck: supple Respiratory: diminished breath sounds Cardiovascular: regular rate and rhythm Gastrointestinal: soft, non-tender Extremities: normal pulses Results Results 24hrs Laboratory Tests Test 03/24/19 12:52 03/24/19 17:56 03/24/19 21:33 03/25/19 02:57 Bedside Glucose 219 213 195 170 Test 03/25/19 04:29 03/25/19 08:22 White Blood Count 8.5 # Red Blood Count 3.82 L Hemoglobin 11.0 L Hematocrit 34.4 L Mean Corpuscular Volume 90.1 Mean Corpuscular 28.8 L Hemoglobin Mean Corpuscular 32.0 Hemoglobin Concent Red Cell Distribution 13.4 Width Platelet Count 271 Mean Platelet Volume 9.6 Immature Granulocytes % 0.800 H Neutrophils % 55.4 Lymphocytes % 34.2 Monocytes % 6.4 Eosinophils % 2.5 Basophils % 0.7 Nucleated Red Blood 0.0 Cells % Immature Granulocytes # 0.070 H Neutrophils # 4.7 Lymphocytes # 2.9 Monocytes # 0.5 Eosinophils # 0.2 Basophils # 0.1 Nucleated Red Blood 0.0 Cells # Bedside Glucose 164 Medications Medication Current Medications Ondansetron HCl (Zofran Inj) 4 mg Q6H PRN IV NAUSEA AND/OR VOMITING; Start 03/21/19 at 15:30 Miscellaneous Information 1 ea NOTE XX ; Start 03/21/19 at 18:30 Glucose (Glutose) 15 gm Q15M PRN PO DECREASED GLUCOSE; Start 03/21/19 at 18:30 Glucose (Glutose) 22.5 gm Q15M PRN PO DECREASED GLUCOSE; Start 03/21/19 at 18:30 Dextrose (D50w Syringe) 25 ml Q15M PRN IV DECREASED GLUCOSE; Start 03/21/19 at 18:30 Dextrose (D50w Syringe) 50 ml Q15M PRN IV DECREASED GLUCOSE; Start 03/21/19 at 18:30 Glucagon (Glucagen) 1 mg Q15M PRN IM DECREASED GLUCOSE; Start 03/21/19 at 18:30 Glucose (Glutose) 15 gm Q15M PRN BUCCAL DECREASED GLUCOSE; Start 03/21/19 at 18:30 Clonidine (Catapres) 0.1 mg Q6H PRN PO HIGH BP; Start 03/21/19 at 20:30 Albuterol (Ventolin Hfa) 2 puff Q6H RESP THERAPY PRN INH SHORTNESS OF BREATH; Start 03/21/19 at 21:00 Insulin Aspart (Novolog Insulin Pen) NOVOLOG *MODERATE* ALGORITHM WITH MEALS BEDTIME SC Last administered on 03/25/19 08:53; Admin Dose 2 UNIT; Start 9 at 07:50 Morphine Sulfate (morphine) 0 MG/HR CONTINUOUS RATE 2... Q4PCA IV Last administered on 03/24/19 21:31; Admin Dose 30 MG; Start 03/21/19 at 23:30 Sodium Chloride 1,000 ml @ 60 mls/hr [id number] IV Last administered on 03/24/19 02:22; Admin Dose 60 MLS/HR; Start 03/22/19 at 14:30 Atorvastatin Calcium (Lipitor) 40 mg QHS PO Last administered on 03/24/19 21:31; Admin Dose 40 MG; Start 03/22/19 at 21:00 Lisinopril (Zestril) 10 mg DAILY PO Last administered on 03/25/19 08:52; Admin Dose 10 MG; Start 03/23/19 at 09:00 Metformin HCl (Glucophage) 500 mg BID WITH MEALS PO Last administered on 03/25/19 08:51; Admin Dose 500 MG; Start 03/22/19 at 17:55 Patient Own Medication 1 ea Q12 PO Last administered on 03/25/19 08:52; Admin Dose 1 EA; Start 03/23/19 at 12:00 Acetaminophen/ Hydrocodone Bitart ([place] (5/325)) 1 tab Q4H PRN PO MODERATE PAIN LEVEL 4-6; Start 03/23/19 at 10:30 Acetaminophen/ Hydrocodone Bitart ([place] (5/325)) 2 tab Q4H PRN PO SEVERE PAIN LEVEL 7-10 Last administered on 03/25/19 05:33; Admin Dose 2 TAB; Start 03/23/19 at 10:30 Magnesium Hydroxide (Milk Of Mag) 30 ml QHS PO Last administered on 03/24/19 21:32; Admin Dose 30 ML; Start 03/23/19 at 21:00 MICHELLE KWAN Mar 25, 2019 10:11
[2019-03-25 14:44] VITALS: BP 176/87; PULSE 91; RESP 15
--- NOTE | 2019-03-25 16:14 | PN ---
DATE: 03/25/2019 Postop day #4 status post left breast modified radical mastectomy and right breast complete mastectomy and immediate postop first stage reconstruction. The patient has been having problem controlling the pain, that is why the patient has been kept here with INTERNET SITE DESIGNER morphine and also p.o. pain medication. SUBJECTIVE: Today, the patient feels much better. Has required only once to twice INTERNET SITE DESIGNER morphine and of course has taken [place] as well. OBJECTIVE: GENERAL: Alert and oriented. VITAL SIGNS: Temperature 98.3, heart rate 77, blood pressure 145/72, respirations 18, saturation 100% on room air. CHEST: Expansion is okay. EXTREMITIES: Comfortably raises upper extremity with ease. LABORATORY DATA: WBC today normal is 8500 with 55% segmented, hemoglobin 11, hematocrit 34, platelet count 271. Chemistry: POC glucose is 175. ASSESSMENT AND PLAN: Considering that the patient's requirement for pain medication has decreased much today and tolerating diet and walking around and dressing is intact and Trung-Rapp drains, the drainage is serosanguineous in color today now; therefore, the patient can be discharged home and I told the nurse to discontinue the INTERNET SITE DESIGNER. If the patient can tolerate pain with po meds.,, then the patient can go home today. Prescription has been given by Dr. Juárez and also Dr. Arizmendi, internal medicine with pain medication and antibiotics. Dictated By: KIMBERLEY GARCIA MD PS/NTS Conf#: [id number] DID#: [id number] CC: MEL CARREON MD; HELEN ROBLEDO MD;*EndCC* MTDD
[2019-03-25 17:31] VITALS: BP 130/68; PULSE 80; RESP 15
[2019-03-25 19:27] VITALS: BP 128/65; PULSE 85; RESP 14
[2019-03-25] MEDS: MAGNESIUM HYDROXIDE 30ML CUP PO SCH (20:33)
[2019-03-25] MEDS: ATORVASTATIN 40 MG TAB PO SCH (20:33)
[2019-03-26] MEDS: HYDROCODONE/APAP (5/325) TAB PO PRN (07:20)
[2019-03-26 07:45] VITALS: BP 143/81; PULSE 82; RESP 17
[2019-03-26] MEDS: LISINOPRIL 10 MG TAB PO SCH (09:09)
[2019-03-26] MEDS: metFORMIN 500 MG TAB PO SCH (09:09)
[2019-03-26] MEDS: PATIENT'S OWN MEDICATION PO SCH (09:09)
[2019-03-26] MEDS: INSULIN ASPART [NOVOLOG] 3 ML PEN SC SCH (09:10)
--- NOTE | 2019-03-26 12:57 | PN ---
DATE: 03/26/2019 SUBJECTIVE: Postop day #5 status post left breast modified radical mastectomy, complete mastectomy. Immediate post-op first stage reconstruction with tissue expanders. Patient feels better today. Pain is under control. OBJECTIVE: GENERAL: Alert, awake, oriented. VITAL SIGNS: Temperature 98.7, respirations 17, heart rate 85, blood pressure 128/64, saturation 98% on room air. Drainage; Trung-Rapp in the past 24 hours has been 55 mL on the left BENI and 55 mL from the right BENI serosanguineous. CLINICAL EXAMINATION: The patient is alert, awake, oriented, no acute distress. Dressing is intact. Trung-Rapp serosanguineous drainage. ABDOMEN: Soft. Moves both upper extremities. ASSESSMENT AND PLAN: The patient is quite stable and pain is under control. Therefore, patient can be discharged from surgical point of view today to be followed by Dr. Ramiro Garcia in his office on coming . Meanwhile, the patient has some antibiotics as prescribed by Dr. Garcia, the patient is receiving in the hospital. The remaining of the antibiotic will be given by the nurse to the patient so that she continues the antibiotic until she sees Dr. Juárez. Also she continued to drain the BENI every night and record the drainage and take the recorded paper to dr cecilia Juárez to make decision . Meanwhile next week patient should also see Dr. Sánchez in the office. Dictated By: KIMBERLEY GARCIA MD PS/NTS Conf#: [id number] DID#: [id number] CC: MEL SÁNCHEZ MD;*EndCC* MTDD
--- NOTE | 2019-03-26 13:20 | DS ---
Date/Time of Note Date/Time of Note DATE: 03/26/19 TIME: 13:18 Discharge Summary Admission/Discharge Info Admit Date/Time Mar 21, 2019 at 08:08 Discharge Date/Time Mar 26, 2019 at 12:30 Discharge Diagnosis 1) breast cancer - s/p mastectomy 2) hypertension - continue home meds 3) diabetes - continue home meds - sliding scale insulin Patient Condition: Fair Consults surgery Procedures mastectomy Hx of Present Illness Patient with hypertension, hypercholesterolemia, diabetes comes in for mastectomy as treatment for breast cancer. Patient tolerated the procedure and is now receiving postoperative care. Hospital Course Patient with hypertension, hypercholesterolemia, diabetes comes in for mastectomy as treatment for breast cancer. Patient tolerated the procedure and is now receiving postoperative care. Patient slowly improved and when felt to be stable per surgery, she was sent home. 1) breast cancer - s/p mastectomy 2) hypertension - continue home meds 3) diabetes - continue home meds - sliding scale insulin Home Meds Reported Medications Albuterol Sulfate* (Proair HFA*) 8.5 Gm Hfa.aer.ad, 2 PUFF INH Q4H PRN for WHEEZING AND SOB, #1 INHALER 03/21/19 Cefadroxil Hydrate* (Cefadroxil*) 500 Mg Capsule, 500 MG PO Q12, CAP 03/21/19 Atorvastatin* (Atorvastatin*) 40 Mg Tablet, 40 MG PO QHS, #30 TAB 03/21/19 Lisinopril* (Lisinopril*) 10 Mg Tablet, 10 MG PO DAILY, #30 TAB 03/21/19 Metformin* (Glucophage*) 500 Mg Tab, 2 TAB ORAL BID 03/21/19 Primary Care Provider Not On Staff Doctor Pending Labs Laboratory Tests Test 03/25/19 17:33 03/25/19 20:30 03/26/19 01:59 03/26/19 08:26 Bedside 225 242 167 168 Glucose mg/dL (70-220) mg/dL (70-220) mg/dL (70-220) mg/dL (70-220) MICHELLE KWAN Mar 26, 2019 13:20
== END 2019-03-26 12:30 | disposition home or self-care (01) | DRG 581 ==
LOC: REC 08:08 → EDSTATUS 10:09 → MS1 19:48
PROVIDERS: ADMIT Surgery Surgical Oncology; ATTEND Surgery Surgical Oncology
PROC: 0HHV0NZ Insertion of Tissue Expander into Bilateral Breast, Open Approach (ICD-10-PCS; 2019-03-21)
PROC: 0HRV0JZ Replacement of Bilateral Breast with Synthetic Substitute, Open Approach (ICD-10-PCS; 2019-03-21)
PROC: 0HTV0ZZ Resection of Bilateral Breast, Open Approach (ICD-10-PCS; principal; 2019-03-21 12:00)
PROC: 07T60ZZ Resection of Left Axillary Lymphatic, Open Approach (ICD-10-PCS; 2019-03-21 12:00)
DX: C50.912 Malignant neoplasm of unspecified site of left female breast (principal); E11.9 Type 2 diabetes mellitus without complications; I10 Essential (primary) hypertension; E78.5 Hyperlipidemia, unspecified; J45.20 Mild intermittent asthma, uncomplicated; Z79.4 Long term (current) use of insulin
CPT/HCPCS: 71045; 80048; 80053; 82962; 83036; 84703; 85025; 85610; 85730; 88309; 93005; J0131; J0690; J1100; J1170; J1580; J1815; J2250; J2270; J2405; J3010; J3480; J7042